=== PATIENT | male | born 1960 | race Caucasian/White ===

== ENCOUNTER 2022-05-08 03:17 | Outpatient (CLI) | payer OTHER, SELFPAY ==
[2022-05-08 11:32] LABS: Source Nasal/Nares
[2022-05-08 17:50] LABS: COVID-19 PCR Negative (Negative)
== END 2022-05-08 03:18 | disposition home or self-care (01) ==
PROVIDERS: PCP Family Medicine; Visit Provider Surgery
DX: Z20.822 Contact with and (suspected) exposure to COVID-19 (principal); Z01.818 Encounter for other preprocedural examination
CPT/HCPCS: 87635

== ENCOUNTER 2022-05-10 10:48 | Day surgery (SDC) | payer OTHER, SELFPAY ==
[2022-05-10] VITALS (8 sets, daily range): BP systolic 92–129; BP diastolic 49–85; PULSE 54–69; RESP 12–20; TEMP 36–36.6; O2SAT 97–99; BMI 23.2
--- NOTE | 2022-05-10 06:58 | ROE_ITS ---
Date of service: 05/10/22 Time of Service: 14:40 Operative Note Operative Note DATE OF PROCEDURE: 05/10/22 PRE-OP DIAGNOSIS: RIGHT INGUINAL HERNIA POST-OP DIAGNOSIS: same PROCEDURE: Right inguinal hernia repair with mesh SURGEON: Jaja Mercado COMPLAINT OPERATOR: Cathy Reeves Refer to Anesthesia Record ESTIMATED BLOOD LOSS: 5 PATHOLOGY: none sent COMPLICATIONS: None Patient was transported to: PACU Patient's condition: stable Implants: BARD Mesh: LOT- [id number] REF- [id number] 2026-07-09 Indications: Adam is a pleasant 62-year-old gentleman with a right inguinal hernia.? He first noticed the hernia about 4 weeks ago.? He does feel like the bulge has gotten a little bit bigger.? He is also had some changes in bowel habits over the same time.? He wonders whether it is due to the hernia.? He has not had any nausea or vomiting or diarrhea.? We discussed open repair with mesh.? We reviewed the anatomy using a pamphlet as well as the risks benefits and complications.? I also reviewed signs and symptoms of incarceration and to seek medical help if that happens. Risks, benefits and complications have been reviewed. Complications include but are not limited to bleeding, infection, injury to vas, vessels and nerves, injury to bowel and adverse reaction to medications. Questions were entertained and answered to their satisfaction and they wished to proceed. Findings: Indirect Hernia Procedure Description: After informed consent was obtained the patient was taken to the operating room and placed in a supine position. Monitors and SCDs were applied and a timeout was done. The patient's name, date of , procedure type, procedure site, allergies to medications, preoperative antibiotic, and DVT prophylaxis were all reviewed. Fire risk was assessed. Next anesthesia did a tap block on the right side under ultrasound guidance. Please see their separate dictation. Once anesthesia was done the abdomen was prepped and draped in a sterile surgical fashion. 0.25% Marcaine was injected into the dermis in the right lower quadrant. An incision was made with a 15 blade in the right lower quadrant. Dissection was done with cautery through the subcutaneous tissues and Andres's fascia down to the external oblique fascia. The external ring was identified and the external oblique fascia was opened sharply through the external ring. The cut fascia was grasped with hemostats the cord structures were identified and a Allen drain was placed around them. The ilioinguinal nerve was identified and cut. The cremasteric muscle was dissected away from the cord structures using both cautery and blunt dissection. A hernia sac was identified and removed from the cord structures using blunt dissection. The hernia sac was suture ligated and amputated. The remnant was pushed back into the peritoneum. A flat piece of mesh was then attached to the lacunar ligament using a 2-0 Prolene double armed suture. The mesh was secured laterally and medially with a 2-0 Prolene, with a running suture. The tails of the mesh were wrapped around the cord structures effectively cinching down the internal ring. Once the mesh was secured the tissues were irrigated with some normal saline. No bleeding was identified. The external oblique fascia was reapproximated using 2-0 Vicryl running suture. The Andres's fascia was reapproximated using interrupted 3-0 Vicryl. The dermis was reapproximated with a running 4-0 Vicryl. The skin was cleaned and dried and skin affix was applied. The patient was woken up and taken back to recovery in stable condition. There were no immediate complications. Sponge, instrument and needle counts were correct at the end of the case x2.
--- NOTE | 2022-05-10 07:00 | PDOC.DSDIS_ITS ---
Discharge Plan Disposition Patient Disposition: HOME Condition: Good Discharge Details Reason For Visit: [facility] Attending Provider: Jaja Mercado Primary Care Provider: Gibson Menard Home Meds and New Rx's Prescriptions: Continued tamsulosin 0.4 mg capsule 0.4 mg PO QHS tadalafil [Cialis] 5 mg tablet 5 mg PO DAILY finasteride 5 mg tablet 5 mg PO HS lisinopril 10 mg tablet 10 mg PO HS doxycycline hyclate 100 mg Capsule 100 mg PO BID lansoprazole 15 mg Capsule,Delayed Release(Dr/Ec) 15 mg PO DAILY Discharge Instructions Additional Instructions: Activity at Home after surgery: 1. Make sure you walk outside at least 4 times per day 2. You should be able to climb a flight of stairs 3. No driving while in pain or taking pain medications 4. No strenuous activity or heavy lifting (>10-15 lb) for 4 weeks (open surgery) Diet, Nutrition, & wound healin. Avoid alcohol until after you are recovered from your surgery 2. Make sure to eat plenty of lean protein (meat, fish, eggs, cottage cheese, beans) 3. Eat a variety of fruits and vegetables. Eat plenty of high fiber foods to avoid constipation. 4. Drink plenty of liquids to stay hydrated and avoid constipation Pain Medications: 1. Tylenol 650mg every 6 hours as needed and Ibuprofen 600 mg every 6 hours as needed. You may alternate between the 2 medications every 3 hours 2. If a narcotic has been prescribed take as directed only for breakthrough pain For Constipation: 1. Take Milk of Magnesia or MiraLax as needed for constipation Other: 1. You may shower daily. Do not scrub the incisions 2. Do not soak the incisions for 1 week 3. You may alternate ice and heat as needed for pain and swelling Wound Care: 1. Keep the incisions clean and dry Please call our office if you develop: 1. Fevers >101.5 2. Nausea or Vomiting 3. Worsening pain 4. Redness and thick discharge from the wounds If after hours please call the Hospital at and ask to speak to the on-call surgeon Referrals: Jaja Mercado MD [ [facility] STAFF PHYSICIAN] - Activity:: as above Remove Dressings/Wound Care:: Do Not Remove Shower/Bathe:: 24 hours Diet:: As Tolerated Discharge Orders Discharge Orders: Discharge Order (Routine); Ordered 05/10/22 Ordered By: Jaja Mercado
--- NOTE | 2022-05-10 10:57 | W.ANESPRE ---
General Info Date of Service Date Performed: 05/10/22 Height: 5 ft 11 in Weight: 75.466 kg Body Mass Index (BMI): 23.2 Surgical Procedure: Operation Date: 05/10/22 13:10 Proposed Procedure Side Surgeon p Herniorrhaphy Inguinal w/Mesh Right Jaja Mercado MD Meds Allergies and Home Medications Allergies Allergy/AdvReac Type Severity Reaction Status Date / Time morphine AdvReac Intermediate profuse Unverified 05/10/22 12:49 sweating Home Medication Medication Instructions Recorded finasteride 5 mg tablet 5 mg PO HS 04/21/22 lisinopril 10 mg tablet 10 mg PO HS 04/21/22 tadalafil 5 mg tablet (Cialis) 5 mg PO DAILY 04/21/22 tamsulosin 0.4 mg capsule 0.4 mg PO QHS 04/21/22 doxycycline hyclate 100 mg capsule 100 mg PO BID 05/10/22 lansoprazole 15 mg capsule,delayed 15 mg PO DAILY 05/10/22 release Current Visit Medications: Current Medications Generic Name Dose Route Start Last Admin Trade Name Eladio PRN Reason Stop Dose Admin Acetaminophen 1,000 mg 05/10/22 06:00 Acetaminophen 500 Mg Tab PO 06/08/22 23:59 PREOP LORENA Celecoxib 200 mg 05/10/22 06:00 Celecoxib 200 Mg Cap PO 06/08/22 23:59 PREOP LORENA Gabapentin 300 mg 05/10/22 06:00 Gabapentin 300 Mg Cap PO 06/08/22 23:59 PREOP LORENA Ringer's Solution 1,000 mls @ 80 mls/hr 05/10/22 06:00 IV 06/08/22 23:59 INFUSION LORENA Cefazolin Sodium/Dextrose 2 gm in 50 mls @ 100 mls/hr 05/10/22 06:00 Ancef Duplex IVPB 06/08/22 23:59 PREOP LORENA Ondansetron HCl 4 mg/ Sodium 52 mls @ 200 mls/hr 05/10/22 07:01 Chloride IVPB Q6H PRN PRN IV Miscellaneous Supplies 1 each 05/10/22 06:00 Iv Access IV 06/08/22 23:59 DIRECTED LORENA Sodium Chloride 0 ml 05/10/22 06:00 Normal Saline Flush 10 Ml Syr IV 06/08/22 23:59 PRN PRN Sodium Chloride 0 ml 05/10/22 06:00 Normal Saline 10 Ml Vial IJ 06/08/22 23:59 DIRECTED PRN Sterile Water 0 ml 05/10/22 06:00 Water,Injection,Sterile 10 Ml Vial IJ 06/08/22 23:59 DIRECTED PRN Tramadol HCl 50 mg 05/10/22 07:01 Tramadol 50 Mg Tab PO Q6H PRN PRN Pain PFSH Active Problems Active Problems: Problem Status Onset Code Right inguinal hernia K40.90 Medical History Medical History Dysplastic nevus Erectile dysfunction Fracture of right tibia and fibula GERD (gastroesophageal reflux disease) Hyperlipidemia Hypertension Neck pain Prostatic hyperplasia Surgical History Surgical History S/P cervical spinal fusion Tobacco Smoking/Tobacco Use Status: Never Alcohol Alcohol Intake: current Alcohol intake frequency: a few times a week Substance Use Substance use: Never Substance use type: does not use Vital Signs and Lab Results Lab Results Blood Type / Crossmatch: No Data to Display Complete Blood Count: No Data to Display Complete Metabolic Panel: No Data to Display Liver Function Panel: No Data to Display Coagulation Panel: No Data to Display Cardiac Panel: No Data to Display Arterial Blood Gas: No Data to Display Venous Blood Gas: No Data to Display Pancreas Panel: No Data to Display Thyroid Panel: No Data to Display Infectious Disease: Coronavirus (COVID-19)(PCR) Negative (Negative) 05/08/22 07:15 Coronavirus 2019 Source Nasal/Nares 05/08/22 07:15 Blood Cultures: No Data to Display Toxicology Panel: No Data to Display Anesthesia Assessment and Plan Anesthesia History Personal History: No History of Anesthesia Complications Family History: No Family History of Anesthesia Complications Exercise Tolerance Exercise Tolerance: Metabolic Equivalents>4 Pertinent Negatives Pertinent Negatives: No Symptoms of GERD, No Major Cardiovascular Symptoms or Complaints, No Major Pulmonary Symptoms or Complaints and No History of CVA/TIA Cardiac & Pulmonary Exam Cardiac Exam: Normal S1/S2 Heart Sounds Pulmonary Exam: Clear Bilateral Breath Sounds Implantable Cardiac Device Does patient have a Pacemaker or an ICD?: No Airway Exam Known Difficult Airway: No Mallampati Class: 2 Mouth Opening: Normal (> 3cm) Thyromental Distance: Greater than 3 cm Neck Range of Motion: Full ROM Neck Circumference: Normal Teeth Condition: Normal Dentition ASA Classification ASA Score: ASA 2 Emergency Case?: No NPO Status NPO Status: NPO Clears >2 hours, Solids >8 hours Anesthesia Plan Resuscitation Status: Full Code Anesthesia Technique: Spinal Anesthesia Airway Planned: Natural Airway Pain Management: Surgeon and patient request nerve block Monitors Used: Standard Monitors
[2022-05-10] MEDS: Gabapentin 300 MG CAP PO (11:36)
[2022-05-10] MEDS: Celecoxib 200 MG CAP PO (11:36)
[2022-05-10] MEDS: Lactated Ringers 1,000 ML 80 ML IV (12:30)
[2022-05-10] MEDS: ceFAZolin 2 GM/50 ML BAG IVPB (12:45)
--- NOTE | 2022-05-10 12:59 | W.ANESNERVE ---
Nerve Block Single Injection Procedure Date and Time Date Performed: 05/10/22 Procedure Start: 12:50 Location Where Procedure Performed Procedure Location: Operating Room Procedure Stop: 13:00 Reason Performed: Postoperative Analgesia Requesting Provider: Jaja Mercado Timeout Performed Timeout Performed: Yes Monitoring Used ECG, Blood Pressure, SpO2 and ETCO2 Sterility Sterility: Hand Hygiene, Surgical Cap, Surgical Mask, Sterile Gloves, Eye Protection and Chlorhexidine Sedation Given During Procedure Sedation Given (Indicate Dose Given): No Sedation given Patient Mental Status Patient Mental Status: Performed under spinal anesthesia (propofol gtt running) Nerve Block 1st Nerve Block: Laterality: Right Block Type: TAP Unilateral Needle / Catheter Used: 100mm SonoPlex II Local Anesthetic Bolus (Indicate Dose Given): Injected in 3-5ml increments after negative blood aspiration and Bupivacaine 0.25% Dose:: 20 mL Additives (Indicate Dose Given): Precedex Dose:: 75 mcg Ultrasound: Sterile probe cover and gel used Ultrasound Image Saved?: Yes Nerve Stimulator: Not Used Paresthesia: None Procedure Tolerated: No Complications and Patient tolerated well Procedure Outcome: Successful Performed By: Fiorella Ortiz Supervised By: Gibson Olivas
[2022-05-10] MEDS: Ketorolac 15 MG/ML VIAL IVP (14:16)
--- NOTE | 2022-05-10 14:25 | W.ANESPOSTOP ---
Postoperative Evaluation Date, Time and Location Date Performed: 05/10/22 Time Performed: 14:25 Patient Location: PACU Vital Signs Most Recent Imported Vital Signs: Most Recent Vital Signs Temp Pulse Resp BP Pulse Ox 36.6 C 56 L 16 107/75 97 05/10/22 14:15 05/10/22 14:15 05/10/22 14:15 05/10/22 14:15 05/10/22 14:15 Pain Score Most Recent Pain Score: Most Recent Pain Score Pain Level 0 05/10/22 14:15 Assessment Mental Status: Awake (Alert & Oriented to Patient Baseline) Airway and Respiratory Function: Patent airway with normal (patient baseline) respiratory exam Cardiovascular Function: Hemodynamically Stable Hydration Status: Adequately Hydrated Nausea & Vomiting: No Nausea or Vomiting Pain: Pt. Denies Any Pain Peripheral Nerve Block: Regional nerve block not resolved at time of post operative discharge (TAP block unilateral right. ) Postoperative Comments:: Notified after this provider went home that the patient experienced a longer than usual spinal R>L. Will follow up with the patient done today.
[2022-05-10] MEDS: traMADol 50 MG TAB PO (14:59)
[2022-05-10] MEDS: Tamsulosin 0.4 MG CAPCR PO (17:04)
== END 2022-05-10 17:45 | disposition home or self-care (01) ==
PROVIDERS: PCP Family Medicine; Visit Provider Surgery
PROC: (CPT 49505; principal; 2022-05-10 13:00)
DX: K40.90 Unilateral inguinal hernia, without obstruction or gangrene, not specified as recurrent (principal); I10 Essential (primary) hypertension; K21.9 Gastro-esophageal reflux disease without esophagitis; E78.5 Hyperlipidemia, unspecified
CPT/HCPCS: 49505; 76942; C1781; J0690; J1100; J1885; J2250; J2405; J2704